=== PATIENT | male | born 1955 | race Caucasian/White ===

== ENCOUNTER → 2022-08-21 | Outpatient (CLI) | payer OTHER ==
--- NOTE | 2022-08-21 08:32 | XR ---
EXAMINATION TYPE: XR lumbar spine 2 or 3V DATE OF EXAM: 08/21/2022 Comparison: None Clinical History: 66-year-old male [id number] Findings: 5 lumbar type vertebral bodies. Mild multilevel degenerative disc disease with endplate spondylosis a nd disc bulging. Trace grade 1 retrolisthesis at L3-L4 and L4-L5. Remaining alignment is maintained. Vertebral body heights are preserved. Hypertrophic facet arthropathy lower lumbar spine. Impression: 1. Mild multilevel degenerative disc disease. Hypertrophic facet arthropathy lower lumbar spine. 2. Degenerative trace grade 1 retrolisthesis L3-L4 and L4-L5.
[2022-08-21 10:43] LABS: Basophils # (A) 0.03 X 10*3/uL (0.00-0.10); Basophils % (A) 0.5 %; Eosinophils # (A) 0.23 X 10*3/uL (0.04-0.35); Eosinophils % (A) 3.8 %; HCT 46.8 % (39.6-50.0); Immature Grans, Automated 0.3 %; Lymphocytes # (A) 1.75 X 10*3/uL (0.90-5.00); Lymphocytes % (A) 28.6 %; MCH 31.1 pg (27.0-32.0); MCHC 34.2 g/dL (32.0-37.0); MCV 91.1 fL (80.0-97.0); Monocytes # (A) 0.54 X 10*3/uL (0.20-1.00); Monocytes % (A) 8.8 %; NRBC Per 100 WBC 0 /100 WBCS (0.0-0.0); Neutrophils # (A) 3.55 X 10*3/uL (1.80-7.70); Platelet Count 221 X 10*3/uL (140-440); RBC 5.14 X 10*6/uL (4.40-5.60); RDW 12.9 % (11.5-14.5); WBC 6.12 X 10*3/uL (4.50-10.00)
[2022-08-21 11:02] LABS: ALT 27 U/L (10-49); AST 17 U/L (14-35); African American GFR (CKD) 91.8 (60.0-200.0); Albumin 4.1 g/dL (3.8-4.9); Albumin/Globulin Ratio 1.58 (1.60-3.17); Alkaline Phosphatase 79 U/L (41-126); Blood Urea Nitrogen 15.1 mg/dL (9.0-27.0); Calcium 8.7 mg/dL (8.7-10.3); Carbon Dioxide 24.4 mmol/L (20.0-27.5); Chloride 106 mmol/L (96-109); Chol/HDL Ratio 4.03 Ratio; Globulin 2.6 g/dL (1.6-3.3); Glucose 142 mg/dL (70-110); LDL Cholesterol,Calculated 120.6 mg/dL (0.0-131.0); Non-African American GFR(CKD) 79.2 (60.0-200.0); Potassium 3.8 mmol/L (3.5-5.5); Sodium 140 mmol/L (135-145); Total Protein 6.7 g/dL (6.2-8.2); VLDL Calculation 14.74 mg/dL (5.00-40.00)
== END | disposition home or self-care (01) ==
LOC: LABWHC1 07:07
PROVIDERS: ATTEND Internal Medicine Geriatric Medicine
DX: D75.1 Secondary polycythemia (principal); E78.2 Mixed hyperlipidemia; M48.00 Spinal stenosis, site unspecified; R73.9 Hyperglycemia, unspecified
CPT/HCPCS: 36415; 72100; 80053; 80061; 83036; 84443; 85025